=== PATIENT | male | born 1995 | race Caucasian/White ===

== ENCOUNTER 2017-03-16 19:09 | Emergency (ER) | payer BC ==
[2017-03-16 19:28] VITALS: BP 141/70
--- NOTE | 2017-03-16 20:16 | UC ---
Alli Cruz Tecjoon, scribed for Ignacio Linder MD on 03/16/17 at 1952 . Headache HPI - HPI Summary HPI Summary: This patient is a 21 year old male presenting [place] [facility] [place] by mother with a chief complaint of headache since 2 days ago s/p being hit in the head by a horses head. Patient states he suffered head trauma in the left side of his head, but suffered no LOC. Patient states that he felt like his whole mouth was full of loose teeth, gums were swollen. Patient states his rear teeth fell out. The pain is described as achy. The pain is rated 6/10 in severity. Symptoms aggravated by palpation. Symptoms alleviated by nothing. Patient additionally reports tingling in fingertips, ear ache, ear discharge. Patient states he had recent significant weight loss and 2 syncopal episodes in the past two weeks prior to head injury. - History Of Current Complaint Chief Complaint: UCHeadInjury Stated Complaint: HEAD INJURY Time Seen by Provider: 03/16/17 19:38 Hx Obtained From: Patient Onset/Duration: Sudden Onset, Lasting Days - 2, Still Present Onset Of Symptoms: Sudden - "hit in head by horse" Currently Pain Is: Current Pain Scale(0-10)= - 6/10 Pain Intensity: 6 Pain Scale Used: 0-10 Numeric Timing: Constant Character: Throbbing - achy Aggravating Factor(s): Nothing Allevating Factor(s): Nothing Associated Signs And Symptoms: Positive: Negative - LOC, Other (Noted In Comments) - reports tingling in fingertips, ear ache, ear discharge - Allergies/Home Medications Allergies/Adverse Reactions: Allergies Allergy/AdvReac Type Severity Reaction Status Date / Time No Known Allergies Allergy Verified 03/16/17 19:28 Home Medications: Home Medications Aleve* 3 tab PO ONCE PRN 03/16/17 [History Confirmed 03/16/17] PMH/Surg Hx/FS Hx/Imm Hx - Additional Past Medical History Additional PMH: negative: legally blind, blindness Previously Healthy: Yes Endocrine History: Other Other Endocrine History: negative: diabetes - Surgical History Surgical History: Yes Surgery Procedure, Year, and Place: BACK, NECK, RIGHT KNEE SURGERY - Family History Known Family History: Positive: Hypertension - Social History Lives: With Family Alcohol Use: None Substance Use Type: Marijuana Smoking Status (MU): Current Every Day Smoker Type: Cigarettes Amount Used/How Often: 1/2 PPD Review of Systems Constitutional: Other - tooth fell out ENT: Ear Ache, Other - ear discharge Neurological: Headache, Paresthesia - in fingertips All Other Systems Reviewed And Are Negative: Yes Physical Exam Triage Information Reviewed: Yes Vital Signs: Initial Vital Signs Temp 98.1 F 03/16/17 19:19 Pulse 80 03/16/17 19:19 Resp 16 03/16/17 19:19 BP 141/70 03/16/17 19:19 Pulse Ox 100 03/16/17 19:19 - Additional Comments General: well-appearing, no pain distress Skin: warm, color reflects adequate perfusion, dry Head: normal Eyes: EOMI, MARY ENT: TM normal, no fluids in ear canal. Tender on jaws and left adventist area. Upper rear molars are missing. Open sockets. Left lower rear molar is broken and partial tooth still there. Right lower rear molar is intact. Neck: Tenderness to midline of neck Respiratory: CTA, breath sounds present Cardiovascular: RRR Abdomen: soft, nontender Bowel: present Musculoskeletal: normal, strength/ROM intact Neurological: normal, sensory/motor intact, A&O x3. Psychological: affect/mood appropriate Headache Course/Dx - Course Course Of Treatment: BP noted and advised to follow up with PCP. THE UPPER REAR MOLARS ARE MISSING. LEFT LOWER REAR MOLAR IS BROKEN. THE RIGHT LOWER REAR MOLAR IS INTACT. THERE IS NO FLUID SEEN IN THE EAR CANALS, NO HEMOTYMPANUM. NO ACTIVE NASAL DRAINAGE. THE NUMBNESS IN THE B/L FINGERS WAS TRANSIENT; IT IS NOT PRESENT NOW, THERE IS NO FOCAL NEUROLOGIC DEFICIT AT THIS TIME. I DISCUSSED FURTHER EVALUATION AT A TRAUMA CENTER ([facility] OR [facility]). THE PATIENT AND HIS MOTHER PREFER TO GO LOCALLY; THEY ARE GOING TO [facility] [place] [facility]. DISCUSSED WITH RUTH AT [facility] [place] [place] [facility]. I RECOMMENDED A HEAD/FACIAL BONE AND C-SPINE CT. - Differential Dx/Diagnosis Provider Diagnoses: HEAD INJURY/CONCUSSION, DENTAL TRAUMA. Discharge - Discharge Plan Condition: Stable Disposition: HOME Patient Education Materials: Concussion (ED), Head Injury (ED) Referrals: No Primary Care Phys,NOPCP [Primary Care Provider] - Additional Instructions: Your blood pressure was elevated during todays visit; please follow up with your primary care provider within a week for further evaluation. GO DIRECTLY TO THE EMERGENCY DEPARTMENT FOR FURTHER EVALUATION OF YOUR HEAD INJURY TO INCLUDE HAVING A CT SCAN DONE. The documentation as recorded by the Alli edmond Tecjoon accurately reflects the service I personally performed and the decisions made by me, Ignacio Linder MD.
== END 2017-03-16 20:12 | disposition home or self-care (01) ==
LOC: UCEAST 19:09
DX: S09.90XA Unspecified injury of head, initial encounter (principal); S06.0X0A Concussion without loss of consciousness, initial encounter; K08.109 Complete loss of teeth, unspecified cause, unspecified class; S02.5XXA Fracture of tooth (traumatic), initial encounter for closed fracture; W55.19XA Other contact with horse, initial encounter; Y93.9 Activity, unspecified; Y92.9 Unspecified place or not applicable; Y99.9 Unspecified external cause status
CPT/HCPCS: 99202; G0463

== ENCOUNTER 2017-03-16 20:25 | Emergency (ER) | payer BC ==
[2017-03-16] MEDS ORDERED: oxyCODONE/Acetamin 5/325 MG* TAB PO ONE (21:45)
--- NOTE | 2017-03-16 21:56 | RAD ---
Indication: Head injury. CT of the brain was performed without IV contrast. Ventricular structures are midline. No midline shift is noted. The extra-axial spaces are unremarkable. There is no evidence of intracranial mass or hemorrhage. No other high or low density lesions are identified. Mastoid air cells and paranasal sinuses are otherwise unremarkable. Bony calvaria is unremarkable. There is a tiny metallic foreign body in the scalp of the right parietal area likely old. IMPRESSION: No intracranial mass or hemorrhage is noted. Foreign body is noted in the right scalp.
[2017-03-16] MEDS ORDERED: Ofloxacin 0.3% OTIC.SOL* 5 ML BTL LEFT EAR SCH (22:00)
--- NOTE | 2017-03-16 22:00 | RAD ---
Indication: Facial injury. CT of the facial bones was obtained in the axial plane. Sagittal and coronal reconstructed images were obtained. The mandible demonstrates no evidence of fracture. Temporomandibular joints are not dislocated. The maxilla including the pterygoid plates are intact. Incidentally noted is mucus retention cyst in the right maxillary sinus. Zygomatic arch shows no fracture. Mastoid air cells are unremarkable. Ethmoid air cells are unremarkable. No fracture of the orbits is noted. The visualized cervical spine is otherwise unremarkable. IMPRESSION: No fracture of the facial bones is identified. Mucus retention cyst right maxillary sinus.
--- NOTE | 2017-03-16 22:04 | RAD ---
Indication: Neck injury. CT of the cervical spine was obtained in the axial plane. Sagittal and coronal reconstructed images were obtained. The skull base demonstrates no fracture. Mastoid air cells are well aerated. External auditory canal demonstrates no evidence of fluid. The C1 ring is intact. No fracture is noted. At C2-C3 and C3-C4 and C4-C5 no fracture is noted. No central or foraminal stenosis is noted. Posterior fusion of C5, C6, C7 and T1 posteriorly is noted. There is fusion of the facets. No fracture is identified. IMPRESSION: Posterior fusion of C5-T1 posteriorly. Spinal canal is intact. No fracture is noted.
[2017-03-16 22:37] VITALS: BP 115/69
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
== END 2017-03-16 22:38 | disposition home or self-care (01) ==
LOC: ED 20:25
DX: H60.92 Unspecified otitis externa, left ear (principal); R51 Headache; K08.89 Other specified disorders of teeth and supporting structures; G47.9 Sleep disorder, unspecified; F12.90 Cannabis use, unspecified, uncomplicated; F17.210 Nicotine dependence, cigarettes, uncomplicated
CPT/HCPCS: 70450; 70486; 72125; 99282; A9270-GY